=== PATIENT | female | born 1955 | race Caucasian/White ===

== ENCOUNTER 2020-04-28 09:34 | Emergency (ER) | payer BC, MEDICARE, SELFPAY ==
[2020-04-28 09:53] VITALS: BP 141/73; PULSE 90; RESP 17; TEMP 36.6; O2SAT 98; BMI 26.9
--- NOTE | 2020-04-28 09:57 | HMH.EDUTC ---
[facility] [place] Disposition Clinical Impression: Encounter for laboratory testing for COVID-19 virus Disposition: Home, Self-Care Condition on Discharge: Good Instructions: Preventing the Spread of Coronavirus Discharge Instructions Additional Instructions: *Monitor Temp, Over the counter Motrin or Tylenol as directed/as needed Tylenol every 4 hours and Motrin every 6 hours (as long as your family doctor has told you that you can take it) for fever or pain. and straight to ER if unable to lower temp less than 101.0 after medication given *Warm salt water gargles may help to soothe the throat *Throat Lozenges *Warm fluids like tea with honey may help to soothe the throat *Sleep elevated *Humidifier/Vaporizer Follow up IMMEDIATELY for new or worsening symptoms or no Noticeable improvement over the next 48-72 hours. 911 for difficulty breathing or swallowing You was tested for today for COVID19 your test result should be back later this evening, you may call back later this evening to see if your test results are back and the result You was given a handout with instructions for Self Quarantine and Self isolation for while you wait on test results and what to do if they are positive Referrals: Jet Muñiz [Primary Care Provider] - As needed Time of Disposition: 09:58 Medical Decision Making - Gm Inquiry Pt receiving controlled substance: No Gm was queried for this patient: No Vital Signs: 04/28/20 09:53 04/28/20 10:13 Temperature 97.8 F 97.8 F Temperature Source Oral Pulse Rate 90 Pulse Rate [Right Brachial] 90 Respiratory Rate 17 17 Blood Pressure 141/73 H Blood Pressure [Right Arm] 141/73 H Blood Pressure Mean [Right Arm] 95 Blood Pressure Source [Right Arm] Automatic Cuff Blood Pressure Position [Right Arm] Sitting 02 Sat by Pulse Oximetry 98 Oxygen Delivery Method Room Air Orders (Tests/Meds): ORDERS Category Date Time Status Covid-19 Nasal PCR ([facility]) Routine Lab 04/28/20 09:36 Ordered [facility] [place] HPI - General Stated complaint: wants covid test Time Seen by Provider: 04/28/20 09:57 Mode of Arrival: Ambulatory Source of Information: Patient Limitations: No Limitations Description of Symptoms (Recalled from Triage Doc. by RN): PATIENT REQUESTING COVID TEST. STATES HER WAS EXPOSED ON TUESDAY, HOWEVER SHE HAS HAD NO KNOWN DIRECT EXPOSURE. DENIES SYMPTOMS HEENT Symptoms (Recalled from RN notes): No Resp Symptoms (Recalled from RN notes): No Skin Symptoms (Recalled from RN notes): No MS Symptoms (Recalled from RN notes): No Functional Status (Recalled from RN notes): WNL - History of Present Illness Provider Complaint: Patient states that was recently in close contact with someone who got sick over the weekend had a fever and tested positive for COVID States that she hasnt been having any symptoms but wanted to get tested - Related Data Home Medications Medication Instructions Recorded Confirmed Pravastatin Sodium [Pravachol 40mg 40 mg PO HS 04/28/20 04/28/20 Tablet] Allergies Allergy/AdvReac Type Severity Reaction Status Date / Time No Known Allergies Allergy Verified 04/28/20 09:56 - Worker's Comp Is this a Worker's Comp case?: No [facility] History - Hepatitis A Screen Drug use history?: No High risk sexual behaviors?: No History of sexually transmitted infection?: No Currently employed?: No Childcare worker?: No Do you have indoor plumbing?: Yes Do you have electricity?: Yes Attestation statement:: This patient has been screened for Hepatitis A risk factors. I have reviewed the patient's past medical history: Yes - Social History Alcohol Intake: never Occupational Status: other ROS Obtained: Yes All systems reviewed & no additional complaints, Yes Systems reviewed as appropriate & no additional complaints - Constitutional Constitutional: Reports system reviewed and no additional complaints, except as docu, Denies body ache, Denies chill
[2020-04-28 10:13] VITALS: BP 141/73; PULSE 90; RESP 17; TEMP 36.6; O2SAT 98
== END 2020-04-28 10:20 | disposition home or self-care (01) ==
PROVIDERS: Emergency Provider Nurse Practitioner; PCP Family Medicine
DX: Z20.828 Contact with and (suspected) exposure to other viral communicable diseases (principal)
CPT/HCPCS: 99201; U0003

== ENCOUNTER 2022-05-25 08:25 | Day surgery (SDC) | payer MEDICARE, BC, SELFPAY ==
[2022-05-24 08:27] VITALS: BMI 25.8
[2022-05-25 10:04] VITALS: BP 142/82; PULSE 75; RESP 16; TEMP 36.6; O2SAT 99
[2022-05-25 10:20] LABS: POC Glucose,Bedside 107 (70-110)
[2022-05-25 10:30] VITALS: BP 158/80; PULSE 73; RESP 18; TEMP 36.2; O2SAT 97
== END 2022-05-25 10:35 | disposition home or self-care (01) ==
PROVIDERS: PCP Family Medicine; Visit Provider Ophthalmology
PROC: (CPT 66821; principal; 2022-05-25 09:00)
DX: H26.493 Other secondary cataract, bilateral (principal)
CPT/HCPCS: 66821; 82962